=== PATIENT | male | born 1960 | race African-American/Black ===

== ENCOUNTER 2021-05-04 20:21 | Emergency (ER) | payer OTHER | END 2021-05-04 21:40 | disposition home or self-care (01) | LOC: MADERS 20:21 | DX: S16.1XXA Strain of muscle, fascia and tendon at neck level, initial encounter (principal); S83.92XA Sprain of unspecified site of left knee, initial encounter; E78.5 Hyperlipidemia, unspecified; I10 Essential (primary) hypertension; F17.200 Nicotine dependence, unspecified, uncomplicated; V43.62XA Car passenger injured in collision with other type car in traffic accident, initial encounter | CPT/HCPCS: 72125; 72128; 72131 ==